=== PATIENT | male | born 1980 | race Caucasian/White ===

== ENCOUNTER 2019-05-13 10:31 | Emergency (ER) | payer SELFPAY ==
[~2019-05-13] VITALS: Ht 165.1 cm; Wt 79.0 kg
[2019-05-13] MEDS ORDERED: IBUPROFEN 400MG TABLET PO ONE (11:45)
[2019-05-13] MEDS ORDERED: HYDROCODONE/ACETAMINOPHEN 5/325MG TABLET PO ONE (11:45)
[2019-05-13 13:51] VITALS: BP 125/84
== END 2019-05-13 13:57 | disposition home or self-care (01) ==
LOC: ER 10:31
DX: S52.515A Nondisplaced fracture of left radial styloid process, initial encounter for closed fracture (principal); M54.9 Dorsalgia, unspecified; F17.210 Nicotine dependence, cigarettes, uncomplicated; V18.0XXA Pedal cycle driver injured in noncollision transport accident in nontraffic accident, initial encounter; Y93.89 Activity, other specified; Y92.488 Other paved roadways as the place of occurrence of the external cause
CPT/HCPCS: 29125; 71101; 73070; 73110; 99283